=== PATIENT | female | born 1995 | race African-American/Black ===

== ENCOUNTER 2023-07-18 23:00 | Emergency (ER) | payer OTHER ==
[~2023-07-18] VITALS: Ht 157.5 cm; Wt 59.1 kg
[2023-07-18 23:14] VITALS: BP 137/82; PULSE 105; RESP 16; TEMP 98
[2023-07-19 00:01] LABS: APPEARANCE,URINE CLEAR (CLEAR); BILIRUBIN,URINE NEGATIVE (NEGATIVE); COLOR,URINE COLORLESS (YELLOW); GLUCOSE, URINE (UA) NEGATIVE (NEGATIVE); KETONES,URINE NEGATIVE (NEGATIVE); LEUKOCYTE ESTERASE ,URINE NEGATIVE (NEGATIVE); NITRATE,URINE NEGATIVE (NEGATIVE); OCCULT BLOOD,URINE NEGATIVE (NEGATIVE); PH,URINE 6.5 (5.0-8.0); PROTEIN,URINE NEGATIVE (NEGATIVE); SPECIFIC GRAVITIY, URINE 1.007 (1.003-1.030); UROBILINOGEN,URINE <=1.0 mg/dL (<=1.0)
[2023-07-19 00:15] LABS: HCG,QUAL URINE POSITIVE (NEGATIVE)
[2023-07-19] MEDS: SODIUM CHLORIDE 0.9% 1,000 ML IV ONE (01:08)
[2023-07-19] MEDS: ONDANSETRON HCL 4 MG/2 ML VIAL IVP ONE (01:08)
[2023-07-19 01:25] LABS: BASOPHILS % (AUTO) 0.8 % (0.0-2.0); HEMATOCRIT 40.6 % (36-46); HEMOGLOBIN 13.2 g/dL (12.0-16.0); LYMPHOCYTES # (AUTO) 2.9 K/uL (1.0-4.8); LYMPHOCYTES % (AUTO) 32.7 % (22.0-44.0); MEAN CORPUSCULAR HEMOGLOBIN 25.8 pg (26.0-34.0); MEAN CORPUSCULAR HGB CONC 32.4 G/dL (31.0-37.0); MEAN CORPUSCULAR VOLUME 80 fL (80-100); MONOCYTES # (AUTO) 0.7 K/uL (0.1-1.0); MONOCYTES % (AUTO) 7.4 % (2.0-9.0); NEUTROPHILS # (AUTO) 4.9 K/uL (1.8-7.7); NEUTROPHILS % (AUTO) 54.1 % (40.0-70.0); PLATELET COUNT (AUTO) 357 K/uL (150-450); RED CELL DISTRIBUTION WIDTH 14.6 % (11.5-14.5)
[2023-07-19 01:43] LABS: ANION GAP 9 mmol/L (8-16); CALCIUM, TOTAL 8.9 mg/dL (8.8-10.5); CARBON DIOXIDE 25 mmol/L (22-29); CHLORIDE 101 mmol/L (98-107); CREATININE 0.62 mg/dL (0.60-1.30); GLOMERULAR FILTR. RATE CALC > 60 mL/min (>60); GLUCOSE,RANDOM 89 mg/dL (70-110); POTASSIUM 4.2 mmol/L (3.5-5.1); SODIUM SERUM 135 mmol/L (136-145); UREA NITROGEN, BLOOD 10 mg/dL (7-18)
[2023-07-19 01:56] LABS: ALANINE AMINOTRANSFERASE 26 U/L (12-78); ALBUMIN 3.6 g/dL (3.4-5.0); ALKALINE PHOSPHATASE 46 U/L (46-116); ASPARTATE AMINOTRANSFERASE 19 U/L (15-37); BILIRUBIN,TOTAL 0.2 mg/dL (0.1-1.0); LIPASE 30 U/L (16-77); TOTAL PROTEIN, SERUM 7.6 g/dL (6.4-8.2)
[2023-07-19] MEDS ORDERED: ONDA-104 PO (02:39)
[2023-07-19 02:47] LABS: HCG,QUANTITATIVE 82591 mIU/mL (0-6)
== END 2023-07-19 03:27 | disposition home or self-care (01) ==
LOC: EMS 23:05
DX: O21.0 Mild hyperemesis gravidarum (principal); E86.0 Dehydration; Z3A.08 8 weeks gestation of pregnancy
CPT/HCPCS: 99285; 80053; 81003; 83690; 84702; 84703; 85025; 36415; 96374; 76801; 96361; J2405; J7030